=== PATIENT | female | born 1975 | race Caucasian/White ===

== ENCOUNTER 2018-07-13 00:44 | Emergency (ER) | payer MEDICAID ==
[~2018-07-13] VITALS: Ht 167.6 cm; Wt 134.4 kg
[~2018-07-13 00:44] MED LIST: AMOX500C2 PO
[2018-07-13 00:50] VITALS: BP 129/60; PULSE 97; RESP 18; Ht 167.6 cm; Wt 134.4 kg
--- NOTE | 2018-07-13 01:39 | ERD ---
ER Documentation Chief Complaint Chief Complaint cough x 1 week HPI This is a 42-year-old female who presents here in emergency department with complaints of coughing for about 2 weeks. Stated that she has productive cough the last 4 days. LMP: 3 weeks ago. M2. Denies headache, head injury, loss of consciousness, dizziness, neck pain, neck stiffness, throat pain, difficulty swallowing, difficulty breathing lying flat, shoulder pain, chest pain, back pain, abdominal pain, nausea, vomiting, constipation, diarrhea, urinary symptoms, or possibility being , loss of bowel and bladder control, trauma, injury, falls, difficulty walking due to pain, numbness or tingling sensation, calf pain, recent travel, recent major surgery in the last 3 weeks, calf pain, recent long travel, recent exposure to any illness, recent antibiotic use in the last 3 months, fever, chills, seizures. Past medical history: Diabetes. High cholesterol. Surgical history: Denies. Social: Denies smoking, use of alcoholic beverages, use of illegal drugs. ROS All systems reviewed and are negative except as per history of present illness. Medications Home Meds Active Scripts Benzonatate* (Tessalon Perle*) 100 Mg Capsule, 100 MG PO Q8H PRN for COUGH, #15 CAP Prov:PASILABANJULIOAR F 07/13/18 Albuterol Sulfate* (Proair HFA*) 8.5 Gm Hfa.aer.ad, 2 PUFF INH Q4H PRN for WHEEZING AND SOB, #1 INHALER Prov:PASILABAN,JULIOAR F 07/13/18 Azithromycin* (Zithromax*) 250 Mg Tablet, 250 MG PO .ZPACK DIRECTED, #6 TAB TAKE 500 MG (2 TABS) THE FIRST DAY THEN 250 MG (1 TAB) DAYS 2-5 Prov:PASILABAN,JULIOAR F 07/13/18 Amoxicillin* (Amoxicillin*) 500 Mg Cap, 500 MG PO TID, #21 CAP 0 Refills Prov:GUADALUPE MURILLO PA-C 09/30/15 Allergies Allergies: Coded Allergies: morphine (Verified Allergy, Unknown, 07/13/18) PMhx/Soc Medical and Surgical Hx: pt denies Surgical Hx History of Surgery: No Anesthesia Reaction: No Hx Neurological Disorder: No Hx Respiratory Disorders: No Hx Cardiac Disorders: Yes (cholesterol) Hx Psychiatric Problems: No Hx Miscellaneous Medical Probl: Yes (DM) Hx Alcohol Use: No Hx Substance Use: No Hx Tobacco Use: No Smoking Status: Never smoker Physical Exam Vitals Vital Signs Date Temp Pulse Resp B/P (MAP) Pulse Ox O2 O2 Flow FiO2 Time Delivery Rate 07/13/18 97.9 97 18 129/60 97 00:50 (83) Physical Exam Const: No acute distress Head: Atraumatic Eyes: Normal Conjunctiva ENT: Normal External Ears, Nose and Mouth. Neck: Full range of motion. No meningismus. Resp: Clear to auscultation bilaterally Cardio: Regular rate and rhythm, no murmurs Abd: Soft, non tender, non distended. Normal bowel sounds Skin: No petechiae or rashes Back: No midline or flank tenderness Ext: No cyanosis, or edema Neur: Awake and alert Psych: Normal Mood and Affect Results 24 hrs Laboratory Tests Test 07/13/18 01:47 POC Beta HCG, Qualitative NEGATIVE Procedures/MDM Diagnostic tests: Patient is insisting chest x-ray. POC urine : Negative. Chest x-ray: No evidence of active cardiopulmonary disease. Treatment: Not applicable. Re-evaluation: Appears comfortable at the waiting area. No tripoding. Differential diagnosis I have low suspicion for sepsis, severe serious medical infection, meningitis, peritonsillar abscess, mastoiditis, status asthmaticus, bronchospasm, airway obstruction. Final diagnosis: Bronchitis. Prescription: Azithromycin. Pro-air. Tessalon Perles. Follow-up with PCP in the next 24-48 hours. Come back here in the emergency department for any new symptoms or any worsening symptoms. All questions and concerns were answered. Patient and family members verbalized understanding and agreed with plan of care. Hemodynamically stable on discharge. Departure Diagnosis: Primary Impression: Cough Additional Impression: Bronchitis Condition: Stable Additional Instructions: Follow-up with PCP in the next 24-48 hours. Come back here in the emergency department for any new symptoms or any worsening symptoms. BELLA LOPES Jul 13, 2018 01:39
[2018-07-13] MEDS ORDERED: AZIT250T PO (02:36)
[2018-07-13] MEDS ORDERED: ALBU8.5H8 INH (02:37)
[2018-07-13] MEDS ORDERED: BENZ-6 PO (02:37)
== END 2018-07-13 02:49 | disposition home or self-care (01) ==
LOC: FTE 00:44
DX: J40 Bronchitis, not specified as acute or chronic (principal); E11.9 Type 2 diabetes mellitus without complications
CPT/HCPCS: 71046; 81025; Z7502